=== PATIENT | female | born 1945 | race Caucasian/White ===

== ENCOUNTER 2017-04-06 02:46 | Outpatient (CLI) | payer SELFPAY | END 2017-04-06 23:59 | disposition home or self-care (01) | LOC: HW VAS 02:46 | DX: Z00.00 Encounter for general adult medical examination without abnormal findings (principal) ==

== ENCOUNTER 2017-05-05 04:52 | Outpatient (CLI) | payer SELFPAY ==
[2017-05-05 08:38] LABS: CHOL/HDL RATIO 2.32 (0.00-4.99)
== END 2017-05-05 23:59 | disposition home or self-care (01) ==
LOC: HW WOMENS 04:52
DX: Z00.00 Encounter for general adult medical examination without abnormal findings (principal)
CPT/HCPCS: 36415

== ENCOUNTER 2022-03-18 09:14 | Inpatient (IN) | payer MEDICARE, BC ==
[~2022-03-18] VITALS: Ht 160 cm; Wt 48.5 kg
[2022-03-18 10:28] LABS: BASOPHILS # (AUTO) 0.1 X10'3 (0-0.2); BASOPHILS % (AUTO) 0.8 % (0-1); EOSINOPHILS # (AUTO) 0.1 X10'3 (0-0.9); EOSINOPHILS % (AUTO) 0.9 % (0-6); HEMATOCRIT 35.3 % (35.0-45.0); HEMOGLOBIN 11.5 g/dl (12.0-16.0); LYMPHOCYTES # (AUTO) 0.8 X10'3 (1.1-4.8); MEAN CORPUSCULAR HEMOGLOBIN 32.3 PG (27.0-31.0); MEAN CORPUSCULAR HGB CONC 32.7 g/dL (33.0-36.5); MEAN PLATELET VOLUME 8.5 FL (7.4-10.4); MONOCYTES # (AUTO) 0.5 X10'3 (0-0.9); MONOCYTES % (AUTO) 6.8 % (2-12); NEUTROPHILS # (AUTO) 5.6 X10'3 (1.8-7.7); NEUTROPHILS % (AUTO) 79.5 % (42-75); PLATELET COUNT 228 X10'3 (140-440); RED BLOOD COUNT 3.56 X10'6 (4.20-5.60); RED CELL DISTRIBUTION WIDTH 14.4 % (11.5-14.5)
[2022-03-18 10:42] LABS: ALANINE AMINOTRANSFERASE 94 U/L (12-78); ALBUMIN 3.5 G/DL (3.4-5.0); ALBUMIN/GLOBULIN RATIO 1.3 (1.1-1.5); ALKALINE PHOSPHATASE 189 IU/L (46-116); ANION GAP 8 (8-16); ASPARTATE AMINO TRANSFERASE 47 U/L (10-37); BILIRUBIN,TOTAL 0.5 MG/DL (0.1-1.0); BLOOD UREA NITROGEN 22 MG/DL (7-18); BUN/CREATININE RATIO 25.6 (6.6-38.0); CALCIUM 8.5 MG/DL (8.5-10.1); CHLORIDE 104 MMOL/L (99-107); CREATININE 0.86 MG/DL (0.40-0.90); GLUCOSE 128 MG/DL (70-104); POTASSIUM 3.8 MMOL/L (3.5-5.1); SODIUM 139 MMOL/L (135-145); TOTAL PROTEIN 6.3 G/DL (6.4-8.2); eGFR 64 ML/MIN
[2022-03-18 10:43] LABS: APTT 27 SECONDS (22-32); D-DIMER 0.52 MG/L FEU (0-0.50)
[2022-03-18 15:23] LABS: ALANINE AMINOTRANSFERASE 83 U/L (12-78); ALBUMIN 3.6 G/DL (3.4-5.0); ALBUMIN/GLOBULIN RATIO 1.2 (1.1-1.5); ALKALINE PHOSPHATASE 193 IU/L (46-116); ANION GAP 10 (8-16); ASPARTATE AMINO TRANSFERASE 39 U/L (10-37); BILIRUBIN,TOTAL 0.5 MG/DL (0.1-1.0); BLOOD UREA NITROGEN 20 MG/DL (7-18); BUN/CREATININE RATIO 25.6 (6.6-38.0); CALCIUM 8.5 MG/DL (8.5-10.1); CHLORIDE 105 MMOL/L (99-107); CREATININE 0.78 MG/DL (0.40-0.90); GLUCOSE 111 MG/DL (70-104); POTASSIUM 3.9 MMOL/L (3.5-5.1); SODIUM 139 MMOL/L (135-145); TOTAL PROTEIN 6.5 G/DL (6.4-8.2); eGFR 72 ML/MIN
[2022-03-18 15:30] LABS: BASOPHILS # (AUTO) 0.1 X10'3 (0-0.2); BASOPHILS % (AUTO) 0.8 % (0-1); EOSINOPHILS # (AUTO) 0.1 X10'3 (0-0.9); EOSINOPHILS % (AUTO) 0.9 % (0-6); HEMATOCRIT 36.2 % (35.0-45.0); LYMPHOCYTES # (AUTO) 1.3 X10'3 (1.1-4.8); MEAN CORPUSCULAR HEMOGLOBIN 32.8 PG (27.0-31.0); MEAN CORPUSCULAR HGB CONC 33.2 g/dL (33.0-36.5); MEAN CORPUSCULAR VOLUME 98.9 FL (78-98); MEAN PLATELET VOLUME 8.7 FL (7.4-10.4); MONOCYTES # (AUTO) 0.5 X10'3 (0-0.9); MONOCYTES % (AUTO) 7.4 % (2-12); NEUTROPHILS # (AUTO) 5.2 X10'3 (1.8-7.7); NEUTROPHILS % (AUTO) 72.9 % (42-75); PLATELET COUNT 245 X10'3 (140-440); RED BLOOD COUNT 3.66 X10'6 (4.20-5.60); RED CELL DISTRIBUTION WIDTH 14.4 % (11.5-14.5); WHITE BLOOD COUNT 7.2 X10'3 (4.5-11.0)
[2022-03-18] MEDS ORDERED: acetaminophen 325mg tablet PO PRN ×2 (15:45)
[2022-03-18] MEDS ORDERED: magnesium hydroxide 30ml (MOM) UD suspension PO PRN (15:45)
[2022-03-18] MEDS ORDERED: HYDROcodone/acetaminophen 10/325mg tab PO PRN (15:45)
[2022-03-18] MEDS ORDERED: ondansetron/PF 4mg/2ml inj IV PRN (15:45)
[2022-03-18] MEDS ORDERED: mag hydrox/Alum hydrox/simeth 30ml oral suspension PO PRN (15:45)
[2022-03-18] MEDS ORDERED: ondansetron 4mg rapidly disintigrating tab PO PRN (15:45)
[2022-03-18] MEDS ORDERED: magnesium Cl slow-release 64mg tablet PO PRN (15:45)
[2022-03-18] MEDS ORDERED: magnesium 4gm in 100ml NS 100 ML IV PRN (15:45)
[2022-03-18] MEDS ORDERED: morphine 2 MG/ML inj. syringe IV PRN ×2 (15:45)
[2022-03-18] MEDS ORDERED: HYDROcodone/acetaminophen 5mg/325mg tablet PO PRN (15:45)
[2022-03-18] MEDS ORDERED: potassium Cl 20 mEq SR tablet PO PRN ×2 (15:45)
[2022-03-18] MEDS ORDERED: potassium Cl 40MEQ/1/2NS 520ml 520 ML IV PRN (15:45)
[2022-03-18] MEDS ORDERED: NO HOME MEDS (16:28)
[2022-03-18] MEDS: furosemide 20 MG/2 ML vial IV SCH (17:27)
[2022-03-18] MEDS: K and/or MAG REPLACEMENT MC SCH (20:00)
[2022-03-18] MEDS: heparin, porcine 5000 units/ml vial SQ SCH (20:30)
[2022-03-18] MEDS ORDERED: temazepam 15mg capsule PO PRN (21:00)
[2022-03-18 23:42] VITALS: BP 101/53
[2022-03-19 04:02] VITALS: BP 115/58
[2022-03-19 06:10] LABS: BASOPHILS # (AUTO) 0.1 X10'3 (0-0.2); BASOPHILS % (AUTO) 1.3 % (0-1); EOSINOPHILS # (AUTO) 0.2 X10'3 (0-0.9); EOSINOPHILS % (AUTO) 2.5 % (0-6); HEMATOCRIT 34.2 % (35.0-45.0); HEMOGLOBIN 11.4 g/dl (12.0-16.0); LYMPHOCYTES # (AUTO) 1.5 X10'3 (1.1-4.8); LYMPHOCYTES % (AUTO) 24.5 % (21-51); MEAN CORPUSCULAR HEMOGLOBIN 32.7 PG (27.0-31.0); MEAN CORPUSCULAR HGB CONC 33.3 g/dL (33.0-36.5); MEAN CORPUSCULAR VOLUME 98.3 FL (78-98); MEAN PLATELET VOLUME 8.9 FL (7.4-10.4); MONOCYTES # (AUTO) 0.6 X10'3 (0-0.9); MONOCYTES % (AUTO) 10.3 % (2-12); NEUTROPHILS # (AUTO) 3.7 X10'3 (1.8-7.7); NEUTROPHILS % (AUTO) 61.4 % (42-75); PLATELET COUNT 213 X10'3 (140-440); RED BLOOD COUNT 3.48 X10'6 (4.20-5.60); RED CELL DISTRIBUTION WIDTH 13.9 % (11.5-14.5); WHITE BLOOD COUNT 6.1 X10'3 (4.5-11.0)
[2022-03-19 06:32] LABS: ALANINE AMINOTRANSFERASE 69 U/L (12-78); ALBUMIN 3.2 G/DL (3.4-5.0); ALBUMIN/GLOBULIN RATIO 1.2 (1.1-1.5); ALKALINE PHOSPHATASE 167 IU/L (46-116); ANION GAP 5 (8-16); ASPARTATE AMINO TRANSFERASE 36 U/L (10-37); BILIRUBIN,TOTAL 0.6 MG/DL (0.1-1.0); BLOOD UREA NITROGEN 20 MG/DL (7-18); BUN/CREATININE RATIO 26.3 (6.6-38.0); CALCIUM 8.1 MG/DL (8.5-10.1); CHLORIDE 109 MMOL/L (99-107); CHOL/HDL RATIO 2.6 (0.00-4.99); CHOLESTEROL 209 MG/DL (0-200); CREATININE 0.76 MG/DL (0.40-0.90); GLUCOSE 104 MG/DL (70-104); HDL CHOLESTEROL 80 MG/DL (35-60); LDL CHOLESTEROL 110 MG/DL (50-100); MAGNESIUM 2.2 MG/DL (1.5-2.4); SODIUM 138 MMOL/L (135-145); TOTAL PROTEIN 5.9 G/DL (6.4-8.2); TRIGLYCERIDES 76 MG/DL (20-135); eGFR 74 ML/MIN
[2022-03-19 07:00] VITALS: BP 151/58
[2022-03-19] MEDS: furosemide 20 MG/2 ML vial IV SCH ×2 (08:23→21:25)
[2022-03-19] MEDS: heparin, porcine 5000 units/ml vial SQ SCH ×2 (08:23→21:25)
[2022-03-19 11:00] VITALS: BP 92/55
[2022-03-19 15:00] VITALS: BP 100/69
[2022-03-19] MEDS: K and/or MAG REPLACEMENT MC SCH (20:00)
[2022-03-19 22:00] VITALS: BP 111/66
[2022-03-20] VITALS (10 sets, daily range): BP systolic 71–107; BP diastolic 46–70
--- NOTE | 2022-03-20 06:59 | NUR ---
Patient in room PCU 3025. I have received report from MIKEL Rascon and had the opportunity to ask questions and assume patient care.
[2022-03-20 07:00] LABS: ALANINE AMINOTRANSFERASE 60 U/L (12-78); ALBUMIN 3.7 G/DL (3.4-5.0); ALBUMIN/GLOBULIN RATIO 1.2 (1.1-1.5); ALKALINE PHOSPHATASE 168 IU/L (46-116); ANION GAP 5 (8-16); ASPARTATE AMINO TRANSFERASE 29 U/L (10-37); BILIRUBIN,TOTAL 0.6 MG/DL (0.1-1.0); BLOOD UREA NITROGEN 22 MG/DL (7-18); CALCIUM 8.6 MG/DL (8.5-10.1); CHLORIDE 104 MMOL/L (99-107); CREATININE 0.88 MG/DL (0.40-0.90); GLUCOSE 116 MG/DL (70-104); MAGNESIUM 2.3 MG/DL (1.5-2.4); PHOSPHORUS 4.2 MG/DL (2.3-4.5); POTASSIUM 3.8 MMOL/L (3.5-5.1); SODIUM 139 MMOL/L (135-145); TOTAL CARBON DIOXIDE 30.5 MMOL/L (24-32); TOTAL PROTEIN 6.7 G/DL (6.4-8.2); eGFR 63 ML/MIN
[2022-03-20 07:13] LABS: BASOPHILS # (AUTO) 0.1 X10'3 (0-0.2); EOSINOPHILS # (AUTO) 0.2 X10'3 (0-0.9); EOSINOPHILS % (AUTO) 3.5 % (0-6); HEMATOCRIT 37.3 % (35.0-45.0); HEMOGLOBIN 12.2 g/dl (12.0-16.0); LYMPHOCYTES # (AUTO) 1.8 X10'3 (1.1-4.8); LYMPHOCYTES % (AUTO) 26.2 % (21-51); MEAN CORPUSCULAR HGB CONC 32.7 g/dL (33.0-36.5); MEAN CORPUSCULAR VOLUME 97.8 FL (78-98); MEAN PLATELET VOLUME 8.6 FL (7.4-10.4); MONOCYTES # (AUTO) 0.7 X10'3 (0-0.9); MONOCYTES % (AUTO) 9.8 % (2-12); NEUTROPHILS # (AUTO) 4.1 X10'3 (1.8-7.7); NEUTROPHILS % (AUTO) 59.5 % (42-75); PLATELET COUNT 252 X10'3 (140-440); RED BLOOD COUNT 3.82 X10'6 (4.20-5.60); WHITE BLOOD COUNT 6.8 X10'3 (4.5-11.0)
[2022-03-20] MEDS: K and/or MAG REPLACEMENT MC SCH ×2 (08:00→19:52)
[2022-03-20] MEDS: furosemide 20 MG/2 ML vial IV SCH ×2 (09:25→20:50)
[2022-03-20] MEDS: atorvastatin 20mg tablet PO SCH (09:25)
[2022-03-20] MEDS: heparin, porcine 5000 units/ml vial SQ SCH ×2 (09:26→20:00)
[2022-03-20] MEDS ORDERED: verapamil 2.5 mg/ml inj IV ONE (16:17)
[2022-03-20] MEDS ORDERED: nitroGLYCERIN-Tridil 50MG/D5W 250 ML IV ONE (16:17)
[2022-03-20] MEDS ORDERED: midazolam 1 mg/ML 2ml injection ONE ×2 (16:18→19:36)
[2022-03-20] MEDS ORDERED: heparin 1,000unit/ml 10ml vial 10 ML ONE ×2 (16:18→18:59)
[2022-03-20] MEDS ORDERED: LIDOcaine 1% 30ml preserv. free vial ONE (16:18)
[2022-03-20] MEDS ORDERED: fentaNYL/PF 50MCG/1 ML 2ML syringe ONE (16:18)
[2022-03-20] MEDS ORDERED: iohexol 350MG/ML 100ml bottle IV ONE ×2 (16:18→18:51)
[2022-03-20] MEDS ORDERED: iohexol 350 MG/ML 50ML vial IV ONE ×2 (18:06→18:24)
[2022-03-20] MEDS ORDERED: clopidogrel 300mg tablet ONE (18:20)
[2022-03-20] MEDS ORDERED: aspirin 325mg tablet ONE (18:20)
--- NOTE | 2022-03-20 18:22 | NUR ---
Problems reprioritized. Patient report given, questions answered & plan of care reviewed with MIKEL Rascon.
[2022-03-20] MEDS ORDERED: phenylephrine 10mg/ml inj. -priapism dosing ONE (18:37)
[2022-03-20] MEDS ORDERED: atropine 0.1mg/ml 10ml syringe ONE (18:37)
[2022-03-20] MEDS ORDERED: NORepinephrine 1 mg/ml inj IV ONE ×2 (18:38→18:41)
[2022-03-20] MEDS ORDERED: heparin 1,000 UNITS/NS 500ml 500 ML ONE (18:51)
[2022-03-20] MEDS ORDERED: HYDROcodone/acetaminophen 10/325mg tab PO PRN (20:55)
[2022-03-20] MEDS ORDERED: normal saline 1000ml 1,000 ML IV SCH (20:55)
[2022-03-20] MEDS ORDERED: HYDROcodone/acetaminophen 5mg/325mg tablet PO PRN (20:55)
[2022-03-20] MEDS ORDERED: aspirin 81mg tab.chew PO ONE (21:00)
[2022-03-21 02:00] VITALS: BP 101/65
[2022-03-21 06:00] VITALS: BP_SYST 109; BP_SYST 95; BP_DIAS 60; BP_DIAS 69
[2022-03-21 07:40] LABS: BASOPHILS # (AUTO) 0.1 X10'3 (0-0.2); BASOPHILS % (AUTO) 0.8 % (0-1); EOSINOPHILS # (AUTO) 0.1 X10'3 (0-0.9); EOSINOPHILS % (AUTO) 1.5 % (0-6); HEMATOCRIT 34.8 % (35.0-45.0); HEMOGLOBIN 11.9 g/dl (12.0-16.0); LYMPHOCYTES # (AUTO) 1.4 X10'3 (1.1-4.8); MEAN CORPUSCULAR HEMOGLOBIN 33.3 PG (27.0-31.0); MEAN CORPUSCULAR HGB CONC 34.1 g/dL (33.0-36.5); MEAN CORPUSCULAR VOLUME 97.6 FL (78-98); MEAN PLATELET VOLUME 8.4 FL (7.4-10.4); MONOCYTES # (AUTO) 0.8 X10'3 (0-0.9); MONOCYTES % (AUTO) 11.3 % (2-12); NEUTROPHILS # (AUTO) 4.4 X10'3 (1.8-7.7); NEUTROPHILS % (AUTO) 65.4 % (42-75); PLATELET COUNT 228 X10'3 (140-440); RED BLOOD COUNT 3.57 X10'6 (4.20-5.60); RED CELL DISTRIBUTION WIDTH 13.9 % (11.5-14.5); WHITE BLOOD COUNT 6.7 X10'3 (4.5-11.0)
[2022-03-21] MEDS: furosemide 20 MG/2 ML vial IV SCH (08:00)
[2022-03-21] MEDS ORDERED: aspirin 81mg, enteric-coated 1 TAB TABLET.DR PO SCH (08:00)
[2022-03-21] MEDS ORDERED: clopidogrel 75mg tablet PO SCH (08:00)
[2022-03-21 08:14] LABS: ALANINE AMINOTRANSFERASE 52 U/L (12-78); ALBUMIN 3.7 G/DL (3.4-5.0); ALBUMIN/GLOBULIN RATIO 1.3 (1.1-1.5); ALKALINE PHOSPHATASE 155 IU/L (46-116); ANION GAP 10 (8-16); ASPARTATE AMINO TRANSFERASE 39 U/L (10-37); BILIRUBIN,TOTAL 0.7 MG/DL (0.1-1.0); BLOOD UREA NITROGEN 22 MG/DL (7-18); BUN/CREATININE RATIO 27.2 (6.6-38.0); CALCIUM 8.6 MG/DL (8.5-10.1); CHLORIDE 103 MMOL/L (99-107); CREATININE 0.81 MG/DL (0.40-0.90); GLUCOSE 93 MG/DL (70-104); MAGNESIUM 2.3 MG/DL (1.5-2.4); PHOSPHORUS 4.5 MG/DL (2.3-4.5); POTASSIUM 3.5 MMOL/L (3.5-5.1); SODIUM 139 MMOL/L (135-145); TOTAL CARBON DIOXIDE 26.5 MMOL/L (24-32); TOTAL PROTEIN 6.6 G/DL (6.4-8.2); eGFR 69 ML/MIN
[2022-03-21] MEDS: atorvastatin 20mg tablet PO SCH (08:18)
[2022-03-21] MEDS: heparin, porcine 5000 units/ml vial SQ SCH (08:18)
[2022-03-21] MEDS ORDERED: sacubitril/valsartan 24mg-26mg tablet PO SCH (10:45)
[2022-03-21] MEDS ORDERED: SACU1TAB PO (10:46)
[2022-03-21] MEDS ORDERED: ATOR20TA66 PO (10:46)
[2022-03-21] MEDS ORDERED: ASPI-1071 PO (10:46)
[2022-03-21] MEDS ORDERED: CLOP75TA34 PO (10:46)
[2022-03-24 06:48] LABS: ISTAT Hct MIX 34 %PCV (35-45); ISTAT O2 SATURATION MIX VENOUS 91 % (60-80); ISTAT SOURCE BLNK
[2022-03-24 06:48] LABS: ISTAT Hct MIX 35 %PCV (35-45); ISTAT O2 SATURATION MIX VENOUS 59 % (60-80); ISTAT SOURCE VEN
== END 2022-03-21 16:21 | disposition home or self-care (01) | DRG 246 ==
LOC: ER 09:14 → ED HOLD 15:54 → PCU 3S 22:05
PROVIDERS: ADMIT Family Medicine; ATTEND Family Medicine
PROC: 027034Z Dilation of Coronary Artery, One Artery with Drug-eluting Intraluminal Device, Percutaneous Approach (ICD-10-PCS; principal; 2022-03-20)
PROC: 02C03ZZ Extirpation of Matter from Coronary Artery, One Artery, Percutaneous Approach (ICD-10-PCS; 2022-03-20)
PROC: 4A023N8 Measurement of Cardiac Sampling and Pressure, Bilateral, Percutaneous Approach (ICD-10-PCS; 2022-03-20)
PROC: B2111ZZ Fluoroscopy of Multiple Coronary Arteries using Low Osmolar Contrast (ICD-10-PCS; 2022-03-20)
PROC: 5A1223Z Performance of Cardiac Pacing, Continuous (ICD-10-PCS; 2022-03-20)
PROC: B41F1ZZ Fluoroscopy of Right Lower Extremity Arteries using Low Osmolar Contrast (ICD-10-PCS; 2022-03-20)
PROC: 4A033BC Measurement of Arterial Pressure, Coronary, Percutaneous Approach (ICD-10-PCS; 2022-03-20)
DX: I25.10 Atherosclerotic heart disease of native coronary artery without angina pectoris (principal); I50.21 Acute systolic (congestive) heart failure; J90 Pleural effusion, not elsewhere classified; I35.0 Nonrheumatic aortic (valve) stenosis; I65.21 Occlusion and stenosis of right carotid artery; I27.20 Pulmonary hypertension, unspecified; E78.5 Hyperlipidemia, unspecified; J44.9 Chronic obstructive pulmonary disease, unspecified; Z66 Do not resuscitate; Z85.3 Personal history of malignant neoplasm of breast; Z92.21 Personal history of antineoplastic chemotherapy; Z97.0 Presence of artificial eye
CPT/HCPCS: 92953; 93306; 93456; 93571; 99285; C9602; 36415; 71045; 80053; 80061; 82803; 83735; 83880; 84100; 84484; 85014; 85025; 85379; 85610; 85730; 87081; 93005; 93880; 99152; 99153; C1724; C1725; C1751; C1756; C1760; C1769; C1894; G0378; J0461; J1644; J1940; J2250; J2370; J3010; J3490; J7030; Q9967

== ENCOUNTER → 2022-03-28 | Outpatient (CLI) | payer MEDICARE, BC ==
[~2022-03-28] VITALS: Ht 155.6 cm; Wt 48.5 kg
[~2022-03-28] MED LIST: ASPI-1071 PO; ATOR20TA66 PO; CLOP75TA34 PO; IODIXANOL 320 MG/ML INFUS..BTL 100ML IV ONE; NO HOME MEDS; SACU1TAB PO; albuterol 2.5 MG/3 ML nebule NEB ONE
[2022-03-28 08:30] LABS: BASOPHILS # (AUTO) 0.1 X10'3 (0-0.2); BASOPHILS % (AUTO) 1.2 % (0-1); EOSINOPHILS # (AUTO) 0.2 X10'3 (0-0.9); EOSINOPHILS % (AUTO) 2.3 % (0-6); HEMATOCRIT 35.1 % (35.0-45.0); HEMOGLOBIN 11.6 g/dl (12.0-16.0); LYMPHOCYTES # (AUTO) 1.2 X10'3 (1.1-4.8); LYMPHOCYTES % (AUTO) 18.1 % (21-51); MEAN CORPUSCULAR HEMOGLOBIN 32.7 PG (27.0-31.0); MEAN CORPUSCULAR HGB CONC 33.2 g/dL (33.0-36.5); MEAN CORPUSCULAR VOLUME 98.6 FL (78-98); MEAN PLATELET VOLUME 8.1 FL (7.4-10.4); MONOCYTES # (AUTO) 0.7 X10'3 (0-0.9); MONOCYTES % (AUTO) 10.4 % (2-12); NEUTROPHILS # (AUTO) 4.6 X10'3 (1.8-7.7); PLATELET COUNT 231 X10'3 (140-440); RED BLOOD COUNT 3.56 X10'6 (4.20-5.60); RED CELL DISTRIBUTION WIDTH 14.1 % (11.5-14.5); WHITE BLOOD COUNT 6.8 X10'3 (4.5-11.0)
[2022-03-28 08:44] LABS: APTT 29 SECONDS (22-32)
[2022-03-28 08:51] LABS: ALANINE AMINOTRANSFERASE 32 U/L (12-78); ALBUMIN 3.6 G/DL (3.4-5.0); ALBUMIN/GLOBULIN RATIO 1.2 (1.1-1.5); ALKALINE PHOSPHATASE 122 IU/L (46-116); ANION GAP 6 (8-16); ASPARTATE AMINO TRANSFERASE 22 U/L (10-37); BILIRUBIN,TOTAL 0.6 MG/DL (0.1-1.0); BLOOD UREA NITROGEN 21 MG/DL (7-18); BUN/CREATININE RATIO 25.6 (6.6-38.0); CALCIUM 8.9 MG/DL (8.5-10.1); CHLORIDE 105 MMOL/L (99-107); CREATININE 0.82 MG/DL (0.40-0.90); GLUCOSE 90 MG/DL (70-104); POTASSIUM 4.1 MMOL/L (3.5-5.1); SODIUM 138 MMOL/L (135-145); TOTAL CARBON DIOXIDE 27.4 MMOL/L (24-32); TOTAL PROTEIN 6.6 G/DL (6.4-8.2); eGFR 68 ML/MIN
== END | disposition home or self-care (01) ==
LOC: RAD 07:41
PROVIDERS: ATTEND Internal Medicine Cardiovascular Disease
DX: I51.7 Cardiomegaly (principal); R94.2 Abnormal results of pulmonary function studies; I35.0 Nonrheumatic aortic (valve) stenosis; R06.02 Shortness of breath; I65.29 Occlusion and stenosis of unspecified carotid artery; I70.0 Atherosclerosis of aorta; M47.815 Spondylosis without myelopathy or radiculopathy, thoracolumbar region
CPT/HCPCS: 36415; 71046; 71275; 74174; 80053; 85025; 85610; 85730; 94060; 94727; 94729; 94760; J3490; Q9967

== ENCOUNTER 2022-04-17 07:01 | Inpatient (IN) | payer MEDICARE, BC ==
[2022-04-11 15:23] LABS: BASOPHILS # (AUTO) 0.1 X10'3 (0-0.2); BASOPHILS % (AUTO) 1.4 % (0-1); EOSINOPHILS # (AUTO) 0.1 X10'3 (0-0.9); EOSINOPHILS % (AUTO) 1.3 % (0-6); LYMPHOCYTES # (AUTO) 1.4 X10'3 (1.1-4.8); LYMPHOCYTES % (AUTO) 19.8 % (21-51); MEAN CORPUSCULAR HEMOGLOBIN 32.3 PG (27.0-31.0); MEAN CORPUSCULAR HGB CONC 32.9 g/dL (33.0-36.5); MEAN PLATELET VOLUME 8.3 FL (7.4-10.4); MONOCYTES # (AUTO) 0.7 X10'3 (0-0.9); MONOCYTES % (AUTO) 9.5 % (2-12); PRE OP HEMATOCRIT 33.9 % (35.0-45.0); PRE OP HEMOGLOBIN 11.2 g/dL (12.0-16.0); PRE OP PLATELET COUNT 266 X10'3 (140-440); RED BLOOD COUNT 3.46 X10'6 (4.20-5.60); RED CELL DISTRIBUTION WIDTH 14.1 % (11.5-14.5)
[2022-04-11 15:24] LABS: PRE OP INR 1.1 INR; PRE OP PROTIME 11.7 SECONDS (9.0-12.0)
[2022-04-11 15:24] LABS: CLARITY,URINE SLIGHTLY CLOUDY (Clear); COLOR,URINE YELLOW (Yellow); GLUCOSE, URINE NEGATIVE (Neg); KETONES,URINE NEGATIVE (Neg); LEUKOCYTE ESTERASE ,URINE NEGATIVE (Neg); NITRITES, URINE POSITIVE (Neg); OCCULT BLOOD,URINE TRACE-INTACT (Neg); PH,URINE 5.5 (4.8-8.0); PROTEIN,URINE TRACE mg/dl (Neg); UROBILINOGEN,URINE 0.2 E.U/dL (0.2-1.0)
[2022-04-11 15:25] LABS: CHLORIDE 107 MMOL/L (99-107); PRE OP GLUCOSE 106 MG/DL (70-104); PRE OP SODIUM 141 MMOL/L (135-145); TOTAL CARBON DIOXIDE 28.8 MMOL/L (24-32)
[2022-04-11 15:26] LABS: ALBUMIN 3.4 G/DL (3.4-5.0); ALBUMIN/GLOBULIN RATIO 1.2 (1.1-1.5); ALKALINE PHOSPHATASE 172 IU/L (46-116); BLOOD UREA NITROGEN 24 MG/DL (7-18); BUN/CREATININE RATIO 24.7 (6.6-38.0); CALCIUM 8.7 MG/DL (8.5-10.1); CREATININE 0.97 MG/DL (0.40-0.90); PRE OP ALT 64 U/L (30-65); PRE OP ANION GAP 5 (8-16); PRE OP AST 36 U/L (10-37); PRE OP BILIRUB, TOTAL 0.5 MG/DL (0.0-1.0); TOTAL PROTEIN 6.3 G/DL (6.4-8.2); eGFR 56 ML/MIN
[2022-04-11 15:55] LABS: UA COLLECTION TYPE CLN CATCH MIDSTREAM
[2022-04-11 15:56] LABS: BACTERIA,URINE 3+ /HPF (Neg); MUCUS STRANDS FEW /LPF (Neg); SQUAMOUS EPITHELIAL CELL,UR MODERATE /LPF (FEW)
[2022-04-11 15:57] LABS: RBC,URINE 0-2 /HPF (0-2)
[2022-04-17] VITALS (16 sets, daily range): BP systolic 99–144; BP diastolic 57–84
[~2022-04-17] VITALS: Ht 157.5 cm; Wt 51.3 kg
[~2022-04-17 07:01] MED LIST changes: -ASPI-1071 PO; +ASPI-611 PO; -ATOR20TA66 PO; +ATOR40TA72 PO; +DOCUMENT DATE & TIME OF BETA-BLOCKER PO ONE; -IODIXANOL 320 MG/ML INFUS..BTL 100ML IV ONE; +LIDOcaine 1% (10mg/ml) 2ml vial ONE; +LOSA25TA41 PO; +METO-395 PO; -NO HOME MEDS; -SACU1TAB PO; -albuterol 2.5 MG/3 ML nebule NEB ONE; +aspirin 325mg tablet PO ONE; +cefazolin/dext.iso 2gm/50ml 50 ML IV ONE; +famotidine 20mg tablet PO ONE; +nitroPRUSSIDE (NIPRIDE) (200MCG/ML) 100ML Drip IV SCH; +ondansetron/PF 4mg/2ml inj IV PRN; +phenylephrine inj 50 MG in normal saline 250ml IV solN IV SCH; +ringers solution, lacted 1,000 ML IV SCH; +vancomycin/NS 1 GM ADD-VANTAGE 250 ML IV ONE
[2022-04-17] MEDS ORDERED: protamine sulfate 10mg/ml inj. ONE ×2 (07:49→10:12)
[2022-04-17] MEDS ORDERED: heparin 1,000 UNITS/NS 500ml 1,500 ML ONE (10:00)
[2022-04-17] MEDS ORDERED: iohexol 350MG/ML 100ml bottle IV ONE (10:00)
[2022-04-17] MEDS ORDERED: LIDOcaine 1% 30ml preserv. free vial ONE (10:00)
[2022-04-17] MEDS ORDERED: fentaNYL/PF 50MCG/1 ML 2ML syringe ONE (10:21)
[2022-04-17] MEDS ORDERED: midazolam 1 mg/ML 2ml injection ONE (10:21)
[2022-04-17] MEDS ORDERED: propofol inj 20 ML IV ONE ×2 (10:29)
[2022-04-17] MEDS ORDERED: ePHEDrine 50MG/ML INJ. ONE (10:43)
[2022-04-17] MEDS ORDERED: 0.9 % SODIUM CHLORIDE 10 ML VIAL ONE (10:43)
[2022-04-17] MEDS ORDERED: furosemide 40mg/4ml inj IV ONE (11:25)
[2022-04-17] MEDS ORDERED: potassium Cl 40MEQ/1/2NS 520ml 520 ML IV PRN (11:25)
[2022-04-17] MEDS ORDERED: magnesium 4gm in 100ml NS 100 ML IV PRN (11:25)
[2022-04-17] MEDS ORDERED: hydrALAZINE 20mg/ml inj. IV PRN ×2 (11:25→11:35)
[2022-04-17] MEDS: normal saline 1000ml 1,000 ML IV SCH (11:25)
[2022-04-17] MEDS ORDERED: proCHLORperazine 10 MG/2 ml inj IV PRN ×2 (11:25→11:35)
[2022-04-17] MEDS ORDERED: HYDROcodone/acetaminophen 5mg/325mg tablet PO PRN (11:25)
[2022-04-17] MEDS ORDERED: magnesium 2GM in 50ml NS 50 ML IV PRN (11:25)
[2022-04-17] MEDS ORDERED: potassium Cl 40MEQ/270ML bag 250 ML IV PRN (11:25)
[2022-04-17] MEDS ORDERED: potassium Cl 20mEq/100mL bag 100 ML IV PRN (11:25)
[2022-04-17] MEDS ORDERED: labetalol 20mg/4ml (5mg/ml) syringe IV PRN ×2 (11:25→11:35)
[2022-04-17] MEDS ORDERED: potassium CL 10mEq/100ml bag 100 ML IV PRN (11:25)
[2022-04-17] MEDS ORDERED: pantoprazole 40mg Tablet.DR PO PRN (11:25)
[2022-04-17] MEDS ORDERED: potassium Cl 20 mEq SR tablet PO PRN (11:25)
[2022-04-17] MEDS ORDERED: diphenhydrAMINE 25mg capsule PO PRN (11:25)
[2022-04-17] MEDS ORDERED: ALPRAZolam 0.25mg tablet PO PRN (11:25)
[2022-04-17] MEDS ORDERED: ondansetron/PF 4mg/2ml inj IV PRN ×2 (11:25→11:35)
[2022-04-17] MEDS ORDERED: docusate sod 100mg capsule PO PRN (11:25)
[2022-04-17] MEDS ORDERED: acetaminophen 325mg tablet PO PRN (11:25)
--- NOTE | 2022-04-17 11:30 | NUR ---
Received from OR via BED, accompanied by Anesthesiologist DR. ZAFAR and report given by Anesthesiologist AND OR NURSE. PT ARRIVED DROWSY BUT ABLE TO RESPOND TO VERBAL STIMULI ON 8 L OF 02 VIA MASK. VSS. PT HAS 20 G IV TO RIGHT ARM AND ART LINE TO LEFT WRIST AND PRESSURE DEVICE INTACT. PT HAS DRESSING TO BILATERAL GROIN THAT IS C/D/I, NO SWELLING OR BLEEDING NOTED. LR CURRENTLY RUNNING. NEURO ASSESSMENT COMPLETED. PUSH, PULL, ENGINEER STEAM, SMILE ALL WITHIN NORMAL LIMITS. BILATERAL PEDAL PULSES STRONG. VSS. WILL CONTINUE TO MONITOR AND RECHECK GROIN SITES. Addendum: 04/17/22 at 1150 by Dustin Shaffer RN Amended: Links added.
[2022-04-17] MEDS ORDERED: morphine 2 MG/ML inj. syringe IV PRN (11:35)
[2022-04-17] MEDS ORDERED: acetaminophen 1,000mg/100ml IV 100 ML IV PRN (11:35)
[2022-04-17] MEDS ORDERED: morphine 4 MG/ML inj SYRINge IV PRN (11:35)
[2022-04-17] MEDS ORDERED: meperidine/PF 25mg/ml syringe IV PRN ×3 (11:35)
[2022-04-17] MEDS ORDERED: ringers solution, lacted 1,000 ML IV SCH (11:35)
--- NOTE | 2022-04-17 12:15 | NUR ---
PATIENT HAS MET ALL CRITERIA FOR TRANSFER TO PCU FLOOR. VSS. DRESSINGS INTACT. BED LOW, CALL LIGHT PRESENT AND 2 RAILS UP. RN PRESENT TO ACCEPT CARE OF PATIENT AND REPORT HAS BEEN CALLED. ALL QUESTIONS ANSWERED TO ACCEPTING RN. Addendum: 04/17/22 at 1248 by Dustin Shaffer RN Amended: Links added.
[2022-04-17] MEDS: ceFAZolin 1GM/D5W- ADD-VANTAGE 50 ML IV SCH ×2 (15:25→23:59)
[2022-04-17] MEDS: sod chloride 0.9% 10ml flush syringe IV SCH (15:28)
[2022-04-17] MEDS: vancomycin/NS 1 GM ADD-VANTAGE 250 ML IV SCH (19:30)
[2022-04-17] MEDS: furosemide 40mg tablet PO SCH (19:30)
[2022-04-18] MEDS: normal saline 1000ml 1,000 ML IV SCH (00:21)
[2022-04-18] MEDS: sod chloride 0.9% 10ml flush syringe IV SCH ×2 (00:21→08:37)
[2022-04-18 02:00] VITALS: BP 111/57
[2022-04-18 04:00] VITALS: BP 134/69
[2022-04-18 06:41] LABS: BASOPHILS # (AUTO) 0.1 X10'3 (0-0.2); BASOPHILS % (AUTO) 0.9 % (0-1); EOSINOPHILS # (AUTO) 0.3 X10'3 (0-0.9); EOSINOPHILS % (AUTO) 3.7 % (0-6); HEMATOCRIT 34.6 % (35.0-45.0); HEMOGLOBIN 11.2 g/dl (12.0-16.0); LYMPHOCYTES # (AUTO) 0.9 X10'3 (1.1-4.8); LYMPHOCYTES % (AUTO) 13.2 % (21-51); MEAN CORPUSCULAR HEMOGLOBIN 31.2 PG (27.0-31.0); MEAN CORPUSCULAR HGB CONC 32.4 g/dL (33.0-36.5); MEAN CORPUSCULAR VOLUME 96.4 FL (78-98); MEAN PLATELET VOLUME 8.1 FL (7.4-10.4); MONOCYTES # (AUTO) 0.6 X10'3 (0-0.9); MONOCYTES % (AUTO) 8.7 % (2-12); NEUTROPHILS # (AUTO) 5.1 X10'3 (1.8-7.7); NEUTROPHILS % (AUTO) 73.5 % (42-75); PLATELET COUNT 202 X10'3 (140-440); RED BLOOD COUNT 3.59 X10'6 (4.20-5.60); RED CELL DISTRIBUTION WIDTH 13.9 % (11.5-14.5); WHITE BLOOD COUNT 6.9 X10'3 (4.5-11.0)
[2022-04-18 07:00] VITALS: BP_SYST 135; BP_SYST 141; BP_DIAS 70; BP_DIAS 86
[2022-04-18 07:05] LABS: ALANINE AMINOTRANSFERASE 39 U/L (12-78); ALBUMIN 3.1 G/DL (3.4-5.0); ALBUMIN/GLOBULIN RATIO 1.1 (1.1-1.5); ALKALINE PHOSPHATASE 144 IU/L (46-116); ANION GAP 8 (8-16); ASPARTATE AMINO TRANSFERASE 28 U/L (10-37); BILIRUBIN,TOTAL 0.6 MG/DL (0.1-1.0); BLOOD UREA NITROGEN 14 MG/DL (7-18); BUN/CREATININE RATIO 15.7 (6.6-38.0); CALCIUM 7.9 MG/DL (8.5-10.1); CHLORIDE 107 MMOL/L (99-107); CREATININE 0.89 MG/DL (0.40-0.90); GLUCOSE 119 MG/DL (70-104); MAGNESIUM 1.8 MG/DL (1.5-2.4); POTASSIUM 3.2 MMOL/L (3.5-5.1); SODIUM 142 MMOL/L (135-145); TOTAL CARBON DIOXIDE 26.6 MMOL/L (24-32); TOTAL PROTEIN 5.8 G/DL (6.4-8.2); eGFR 62 ML/MIN
[2022-04-18] MEDS: vancomycin/NS 1 GM ADD-VANTAGE 250 ML IV SCH (08:00)
[2022-04-18] MEDS ORDERED: atorvastatin 20mg tablet PO SCH (08:00)
[2022-04-18] MEDS ORDERED: clopidogrel 75mg tablet PO SCH (08:00)
[2022-04-18] MEDS ORDERED: losartan 25mg tablet PO SCH (08:00)
[2022-04-18] MEDS ORDERED: metoprolol succinate 25mg (24-HOUR) SR. Tablet PO SCH (08:00)
[2022-04-18] MEDS ORDERED: aspirin 81mg, enteric-coated 1 TAB TABLET.DR PO SCH (08:00)
[2022-04-18] MEDS ORDERED: aspirin 81mg tab.chew PO SCH (08:30)
[2022-04-18 08:31] VITALS: BP_SYST 135
[2022-04-18] MEDS: furosemide 40mg tablet PO SCH (08:31)
[2022-04-18] MEDS: ceFAZolin 1GM/D5W- ADD-VANTAGE 50 ML IV SCH (08:37)
== END 2022-04-18 13:25 | disposition home or self-care (01) | DRG 266 ==
LOC: PAS IN 07:01 → EDSTATUS 09:30 → PCU 3S 12:58
PROVIDERS: ADMIT Internal Medicine Cardiovascular Disease; ATTEND Internal Medicine Cardiovascular Disease
PROC: 027F3ZZ Dilation of Aortic Valve, Percutaneous Approach (ICD-10-PCS; 2022-04-17)
PROC: B41D1ZZ Fluoroscopy of Aorta and Bilateral Lower Extremity Arteries using Low Osmolar Contrast (ICD-10-PCS; 2022-04-17)
PROC: 02RF38Z Replacement of Aortic Valve with Zooplastic Tissue, Percutaneous Approach (ICD-10-PCS; principal; 2022-04-17 10:14)
DX: I35.0 Nonrheumatic aortic (valve) stenosis (principal); Z00.6 Encounter for examination for normal comparison and control in clinical research program; I50.23 Acute on chronic systolic (congestive) heart failure; E78.5 Hyperlipidemia, unspecified; I25.10 Atherosclerotic heart disease of native coronary artery without angina pectoris; Z79.02 Long term (current) use of antithrombotics/antiplatelets; Z85.3 Personal history of malignant neoplasm of breast; Z92.21 Personal history of antineoplastic chemotherapy; Z92.3 Personal history of irradiation; Z95.5 Presence of coronary angioplasty implant and graft
CPT/HCPCS: 33361; 36415; 71045; 76937; 80053; 81001; 82948; 83735; 83880; 85025; 85347; 85610; 85730; 86885; 86900; 86901; 86920; 87077; 87081; 87088; 87186; 93005; 93308; A4618; A6258; A6402; A6449; C1725; C1756; C1760; C1769; C1894; G0378; J0690; J1644; J1940; J2250; J2370; J2704; J2720; J3010; J3370; J3490; J7030; J7040; J7050; J7120; Q9967